=== PATIENT | male | born 1990 | race Caucasian/White ===

== ENCOUNTER 2021-01-14 13:56 | Inpatient (IN) | payer OTHER ==
[~2021-01-14] VITALS: Ht 185.4 cm; Wt 125.2 kg
[2021-01-14 14:14] VITALS: BP 166/108
[2021-01-14 14:42] LABS: ABSOLUTE NEUTROPHILS 3.4 thou/uL (1.4-8.2); BASOPHILS 0.4 % (0.0-2.0); EOSINOPHILS 1.4 % (0.0-3.0); HEMATOCRIT 48.2 % (42.0-52.0); HEMOGLOBIN 16.7 gm/dL (14.0-18.0); LYMPHOCYTES 15.2 % (24.0-44.0); MCH 34.6 pg (26.0-34.0); MCHC 34.6 g/dL (28.0-37.0); MCV 99.7 fL (80.0-100.0); MONOCYTES 8.2 % (1.0-8.0); POLYS 74.8 % (36.0-66.0); RBC 4.83 mil/uL (4.50-6.00); WBC 4.5 thou/uL (4.0-11.0)
[2021-01-14 15:01] LABS: CALCIUM 8.9 mg/dL (8.5-10.1)
[2021-01-14 15:06] LABS: ALBUMIN 3.9 g/dL (3.4-5.0); TOTAL BILIRUBIN 1.6 mg/dL (0.2-1.0)
[2021-01-14 15:14] LABS: PLATELET COUNT 76 thou/uL (150-400)
[2021-01-14] MEDS ORDERED: GABAPENTIN600 M1 PO (17:35)
[2021-01-14] MEDS ORDERED: QUETIAPINE FUM300 MG PO (17:35)
[2021-01-14] MEDS ORDERED: PROZAC20 MG PO (17:35)
[2021-01-14] MEDS ORDERED: ALPRAZOLAM1 MG PO (17:35)
[2021-01-14] MEDS ORDERED: METOPROLOL TAR100 MG PO (17:35)
[2021-01-14] MEDS ORDERED: FIASP 100100 UNIT/2 SUBQ (17:53)
[2021-01-14 18:10] LABS: FOLIC ACID 18.4 ng/mL (8.6-58.9)
[2021-01-14 20:03] LABS: URINE BILIRUBIN NEGATIVE (Negative); URINE BLOOD NEGATIVE (Negative); URINE CLARITY CLEAR; URINE COLOR YELLOW; URINE GLUCOSE-RANDOM* 3+ (Negative); URINE KETONES 3+ (Negative); URINE LEUKOCYTES-REFLEX NEGATIVE (Negative); URINE NITRITE-REFLEX NEGATIVE (Negative); URINE PROTEIN (DIPSTICK) NEGATIVE (Negative); URINE UROBILINOGEN 0.2 E.U./dl (0.2-1.0)
[2021-01-14 20:08] VITALS: BP 169/113
[2021-01-14 21:49] VITALS: BP 186/108
[2021-01-14 23:53] VITALS: BP 152/109
[2021-01-15] VITALS (8 sets, daily range): BP systolic 159–199; BP diastolic 108–127
--- NOTE | 2021-01-15 04:09 | NUR ---
pt admitted to room 209 at around 2145, alert and orientedx4, sr on tele, c/o of severe acute abdominal pain d/t pacretitis, pain meds given prn with partial relief, admission assessment, hx and education completed, ciwa score of 14, medicated with ativan as per apr, pt is npo, plan for pain management and assess and treat for s/s of alcohol withdrawal.
[2021-01-15 05:15] LABS: ABSOLUTE NEUTROPHILS 3.9 thou/uL (1.4-8.2); BASOPHILS 0.3 % (0.0-2.0); EOSINOPHILS 0.2 % (0.0-3.0); HEMATOCRIT 44.5 % (42.0-52.0); HEMOGLOBIN 15.4 gm/dL (14.0-18.0); LYMPHOCYTES 9.7 % (24.0-44.0); MCH 34.7 pg (26.0-34.0); MCHC 34.6 g/dL (28.0-37.0); MCV 100.3 fL (80.0-100.0); MONOCYTES 8.3 % (1.0-8.0); PLATELET COUNT 79 thou/uL (150-400); POLYS 81.5 % (36.0-66.0); RBC 4.43 mil/uL (4.50-6.00); RDW 15.1 % (10.5-14.5); WBC 4.8 thou/uL (4.0-11.0)
[2021-01-15 06:03] LABS: ALBUMIN 3.6 g/dL (3.4-5.0); CALCIUM 8.3 mg/dL (8.5-10.1); CREATININE 0.9 mg/dL (0.7-1.3); POTASSIUM 3.7 mmol/L (3.5-5.1); TOTAL BILIRUBIN 1.1 mg/dL (0.2-1.0); TOTAL PROTEIN 6.7 g/dL (6.4-8.2)
--- NOTE | 2021-01-15 12:31 | NUR ---
Case opened to follow for support and dc planning. Senior Architectural Designer visited with pt at bedside along with Dr. Arnold. 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 He lives with his mother Kendy and is his emergency contact. He has health ins per [facility] and [facility] has sent a copy of his card to registration. His pcp is Dr. Jason Silva. His pcp has been managing his mental health meds for anxiety and depression. He has hx of ethol abuse and has been inpt detox at [facility] before, tried AA, and has gone to counseling. He declined inpt and outpt tx referrals but was open to resources which have been noted on his dc instructions. He states he does better on his own and has been sober for a year once before after getting a DUI. Cm role introduced and support and encouragment provided. Will follow along.
--- NOTE | 2021-01-15 15:19 | NUR ---
RECEIVED ORDERS FOR EVAL AND TREAT. CHART REVIEWED. SPOKE TO Pt AND HIS NURSE, ALE, WHO BOTH STATE THAT [facility] AND SAFELY. Pt POLITELY REFUSED ANY P.T. AT THIS TIME D/T NOT NEEDING IT. WILL D/C.
--- NOTE | 2021-01-15 18:12 | NUR ---
NO FALLS OR INJURIES. ALL SAFETY MEASURES IN PLACE. VSS. PATIENT UP AD BINTA IN ROOM. TAKING ATIVAN Q2 HOURS FOR ETOH WITHDRAWAL AND FENTANYL FOR ABDOMINAL PAIN Q4 HOURS WITH MINIMIAL RELIEF. SIEZURE PADS ON BED. NS INFUSING AT 100ML/HR. BLOOD GLUCOSE CHECKED ACHS WITH INSULIN GIVEN PER ORDER. PATIENT HAS HAD HIGH BP, SBP<170, HYDRALAZINE GIVEN. PATIENT IS STRICT NPO WITH NO ICE CHIPS OR SWABS AND NO PO PILLS PER DR. LORENZ. PATIENT EXPECTED TO BE HERE A FEW MORE DAYS. WILL DC ONCE MEDICALLY STABLE.
[2021-01-16] VITALS (8 sets, daily range): BP systolic 105–189; BP diastolic 79–133
--- NOTE | 2021-01-16 07:12 | NUR ---
PT REMAINS NPO, CIWA PROTOCOLA CHARTED, PRN PAIN MEDS GIVEN FOR C/O ABDOMINAL PAIN, NOT ABLE TO SLEEP THRU THE NOC AND AMBULATES IN [place], BP REMAINS ELEVATED AND HR ST UP TO 140'S WITH ACTIVITY, NAUSEA MEDS GIVEN CHARTED, WILL CON'T TO MONITOR PER PPOC.
--- NOTE | 2021-01-16 08:36 | NUR ---
OT EVALUATION RECEIVED AND PT REFUSED. DOES NOT BELIEVE HE NEEDS. REFUSED PT WELL AND CHART INDICATES UP AD BINTA IN ROOM
[2021-01-16 13:24] LABS: HEMATOCRIT 45.8 % (42.0-52.0); HEMOGLOBIN 15.9 gm/dL (14.0-18.0); MCH 35.1 pg (26.0-34.0); MCHC 34.8 g/dL (28.0-37.0); RBC 4.54 mil/uL (4.50-6.00); RDW 15.2 % (10.5-14.5); WBC 7.2 thou/uL (4.0-11.0)
[2021-01-16 14:02] LABS: ALBUMIN 3.6 g/dL (3.4-5.0); CALCIUM 8.6 mg/dL (8.5-10.1); CREATININE 0.8 mg/dL (0.7-1.3); POTASSIUM 3.8 mmol/L (3.5-5.1); TOTAL BILIRUBIN 4.8 mg/dL (0.2-1.0); TOTAL PROTEIN 7.3 g/dL (6.4-8.2)
--- NOTE | 2021-01-16 21:22 | NUR ---
PT IS AXOX4, PLEASANT; VS HR ELEVATED, AFEBRILE, ST ON THE MONITOR. PT HAS INCREASED HR WITH ACTIVITY. PT HAS BEEN ANXIOUS THROUGH OUT SHIFT, AND WANTING TO EAT. DR LORENZ CONSULTED, GI CONSULTED; LABS DRAWN TO VERIFY PT's PROGRESS. PT PROGRESSED TO CLEAR LIQUID DIET. PT TOLERATING WELL. CIWA SCORES THROUGHOUT THE DAY HAVE BEEN 9, R/T AGITATION/ANXIOUSNESS. PT UP AD BINTA IN ROOM, WALKING IN [place], UP TO BATHROOM. POC IS TO CONTINUE TO MONITOR PT's DIET PROGRESSION; SOME RX FROM IV TO PO; PAIN MGMT. LOW FALL PRECAUTIONS IN PLACE. FREQUENT ROUNDING.
[2021-01-17 00:38] VITALS: BP 167/79
[2021-01-17 04:27] VITALS: BP 168/105
[2021-01-17 04:50] LABS: HEMOGLOBIN 14.7 gm/dL (14.0-18.0); MCH 34.7 pg (26.0-34.0); MCHC 34.3 g/dL (28.0-37.0); MCV 101.4 fL (80.0-100.0); RBC 4.24 mil/uL (4.50-6.00); RDW 15.8 % (10.5-14.5); WBC 3.3 thou/uL (4.0-11.0)
--- NOTE | 2021-01-17 05:06 | NUR ---
PT BEEN RESTING IN NO ACUTE DISTRESS.A/OX4.SR/STACHY ON MONITOR.VSS.HYPERTENSIVE WITH SCHEDULED MEDS AND PRN HYPERTENSIVE MEDS GIVEN WITH SOME IMPROVEMENT.PT AMBULATES ON THE HALLWAY WITH STEADY GAIT.PT COMPLAINING OF ABDOMINAL PAIN,CONSTANTLY REQUIRING PAIN MEDS Q4H.REPORTS SOME RELIEF.CIWR SCORE AT 9,REQUIRING LORAZEPAM PO ORALLY.PT DENIES NAUSEA .TOLERATING CLEAR LIQUID DIET.WILL CONT WITH POC.
[2021-01-17 06:03] LABS: ALBUMIN 3.2 g/dL (3.4-5.0); CALCIUM 8.2 mg/dL (8.5-10.1); CREATININE 0.7 mg/dL (0.7-1.3); MAGNESIUM 2.1 mg/dL (1.8-2.4); POTASSIUM 3.4 mmol/L (3.5-5.1); TOTAL BILIRUBIN 5.6 mg/dL (0.2-1.0)
--- NOTE | 2021-01-17 08:07 | NUR ---
pt called out approx 0745 stating that he was going to be leaving the hospital. this nurse asked him about his reason for leaving; patient stated that his dog last night and needs to go home to be with her. this nurse asked the patient if anyone else could tend to things at home while he stays at this hospital; patient responded, "no." educated patient on leaving against medical advice process. patient agreeable to sign ama form. informed dr. alvarez about patients wish to leave ama. provider is aware of patient leaving ama and does not want to place patient on any type of hold.
== END 2021-01-17 08:28 | disposition left against medical advice (07) | DRG 439 ==
LOC: ER 13:56 → 2N 17:15 → EROBS 17:15 → 2N 21:36
PROVIDERS: Emergency Medicine; Nurse Practitioner; Nurse Practitioner Family; ADMIT Internal Medicine; ATTEND Internal Medicine
DX: K85.90 Acute pancreatitis without necrosis or infection, unspecified (principal); F10.139 Alcohol abuse with withdrawal, unspecified; R74.01 Elevation of levels of liver transaminase levels; I10 Essential (primary) hypertension; E10.65 Type 1 diabetes mellitus with hyperglycemia; E10.40 Type 1 diabetes mellitus with diabetic neuropathy, unspecified; F32.9 Major depressive disorder, single episode, unspecified; F41.9 Anxiety disorder, unspecified; F10.10 Alcohol abuse, uncomplicated; D69.6 Thrombocytopenia, unspecified; Z53.29 Procedure and treatment not carried out because of patient's decision for other reasons; Z20.822 Contact with and (suspected) exposure to COVID-19; Z86.73 Personal history of transient ischemic attack (TIA), and cerebral infarction without residual deficits; Z71.6 Tobacco abuse counseling; Z82.49 Family history of ischemic heart disease and other diseases of the circulatory system; Z91.19 Patient's noncompliance with other medical treatment and regimen; Z83.3 Family history of diabetes mellitus
CPT/HCPCS: 10081